=== PATIENT | male | born 1990 | race Caucasian/White ===

== ENCOUNTER → 2020-03-28 | Outpatient (CLI) | payer OTHER ==
--- NOTE | 2020-03-29 09:12 | Diagnostic Imaging Report ---
MRI of the right ankle without contrast. History: Ankle pain. Sprain. Trauma. Decreased range of motion. Twisting injury. Technique: Utilizing a high-field 1.5T magnet, the following sequences were acquired: PD FS in all 3 planes with additional axial PD. Comparison: None. Findings: Achilles tendon and plantar fascia: The Achilles tendon and plantar fascia are normal. Cartilage and bone: Negative for osteochondral lesion of the tibiotalar and subtalar joints. Negative for osteonecrosis, or dislocation. Minimal bone marrow edema at the tip of the fibula and at the medial talus likely stress related or due to a bone contusion. Small bony avulsion fracture at the anterior distal tip of the fibula best seen on series 3 image 17. Medial ankle: Mild sprain of the deltoid ligament complex. The majority of the fibers are intact. The medial flexor tendons are normal. There is a physiologic amount of fluid within the tendon sheath of FHL. Lateral ankle: High-grade tear of the anterior talofibular and calcaneofibular ligaments. The posterior talofibular ligament are intact. Small effusion and mild synovitis in the anterolateral gutter with adjacent soft tissue edema. The syndesmotic ligaments are intact. The peroneal tendons are normal. Anterior ankle: The anterior extensor tendons are normal. Other findings: Small tibiotalar joint effusion and synovitis. Impression: High-grade tear of the anterior talofibular and calcaneofibular ligaments. The posterior talofibular ligament are intact. Small effusion and mild synovitis in the anterolateral gutter with adjacent soft tissue edema. Small bony avulsion fracture at the anterior distal tip of the fibula best seen on series 3 image 17. Mild sprain of the deltoid ligament complex. The majority of the fibers are intact Signed by: Dr. Robert Jones M.D. on 03/29/2020 9:09 AM
== END ==
LOC: MRI 14:19
PROVIDERS: ATTEND Family Medicine
DX: S93.401D Sprain of unspecified ligament of right ankle, subsequent encounter (principal)